=== PATIENT | male | born 1990 | race African-American/Black ===

== ENCOUNTER 2022-04-14 17:21 | Emergency (ER) | payer OTHER ==
[~2022-04-14] VITALS: Ht 172.7 cm; Wt 63.5 kg
--- NOTE | 2022-04-14 19:09 | NUR ---
Dr winters at bedside, MSE in progress.
[2022-04-14 19:55] LABS: HEMATOCRIT 40.2 % (36.7-47.1); MEAN CORPUSCULAR HEMOGLOBIN 28.1 uug (23.8-33.4); MEAN CORPUSCULAR VOLUME 83.9 fL (73.0-96.2); PLATELET COUNT (AUTO) 185 K/uL (152-348)
[2022-04-14 20:26] LABS: *MONOTEST NEGATIVE (NEGATIVE)
[2022-04-14] MEDS ORDERED: AZIT250T13 PO (21:27)
[2022-04-14] MEDS ORDERED: OXYC-128 PO (21:27)
--- NOTE | 2022-04-14 21:39 | NUR ---
Patient discharged to home in stable condition. Written and verbal after care instructions given. Patient verbalizes understanding of instructions. Stressed follow up or return to ER for worsening s/s. pt ambulated wtih steady gait. denies pain. no SOB. no chest pain. AOx4
[2022-04-14 21:41] VITALS: BP 132/82
== END 2022-04-14 21:42 | disposition home or self-care (01) ==
LOC: ER 17:24
DX: J03.90 Acute tonsillitis, unspecified (principal); M79.10 Myalgia, unspecified site; R68.83 Chills (without fever); Z20.822 Contact with and (suspected) exposure to COVID-19
CPT/HCPCS: 36415; 85025; 86308; 86403; 87070; A4663